=== PATIENT | female | born 1970 | race Two or more races ===

== ENCOUNTER 2019-12-29 05:57 | Emergency (ER) | payer MEDICAID ==
[~2019-12-29] VITALS: Ht 157.5 cm; Wt 82.0 kg
[2019-12-29] MEDS ORDERED: KETOROLAC 30MG/ML VIAL IM ONE (08:30)
[2019-12-29] MEDS ORDERED: CYCLOBENZAPRINE 10MG TABLET PO ONE (08:30)
[2019-12-29 10:00] VITALS: BP 134/77
[2019-12-29 10:11] LABS: CLARITY URINE CLEAR (CLEAR); COLOR URINE YELLOW (YELLOW); KETONES URINE NEGATIVE (NEGATIVE); LEUKOCYTE ESTERASE URINE NEGATIVE (NEGATIVE); NITRITE URINE NEGATIVE (NEGATIVE); OCCULT BLOOD URINE NEGATIVE (NEGATIVE); PH URINE 5.5 (4.5-8.0); PROTEIN URINE NEGATIVE (NEGATIVE); SPECIFIC GRAVITY URINE 1.032 (1.005-1.030); UROBILINOGEN URINE 0.2 E.U./dL (0.2-1.0)
== END 2019-12-29 10:54 | disposition home or self-care (01) ==
LOC: ER 05:57
DX: M54.6 Pain in thoracic spine (principal); Z88.8 Allergy status to other drugs, medicaments and biological substances; Z90.49 Acquired absence of other specified parts of digestive tract; Z98.890 Other specified postprocedural states; C43.9 Malignant melanoma of skin, unspecified
CPT/HCPCS: 81003; 81025; 96372; 99283; J1885

== ENCOUNTER 2022-01-31 08:13 | Emergency (ER) | payer MEDICAID ==
[~2022-01-31] VITALS: Ht 165.1 cm; Wt 77.0 kg
[~2022-01-31 08:13] MED LIST: FERR325T6 MT; IBUP-2028 MT
[2022-01-31] MEDS ORDERED: VISCOUS LIDOCAINE 2% 15 ML UDC MM STA (08:38)
[2022-01-31] MEDS ORDERED: ACETAMINOPHEN 325MG TABLET PO ONE (08:45)
[2022-01-31] MEDS ORDERED: MORPHINE SULFATE 10 MG/ML CPJ IM ONE (08:45)
[2022-01-31] MEDS ORDERED: ONDANSETRON 4MG ODT PO ONE (08:45)
[2022-01-31] MEDS ORDERED: MAGNESIUM/ALUMINUM HYDROXIDE/SIMETHICONE 30ML UDC PO ONE (08:45)
[2022-01-31] MEDS ORDERED: FAMOTIDINE 20MG TABLET PO ONE (08:45)
[2022-01-31 09:05] LABS: BASOPHILS % 0.2 % (0.0-2.0); EOSINOPHILS % 5.6 % (0.0-5.0); HEMATOCRIT. 42.6 % (36.0-48.0); HEMOGLOBIN. 13.6 g/dL (12.0-16.0); LYMPHOCYTES % 22.4 % (20.0-50.0); MEAN CORPUSCULAR HEMOGLOBIN 25.4 pg (28.0-32.0); MEAN CORPUSCULAR VOLUME 79.4 fL (81.0-99.0); MONOCYTES % 5.9 % (2.0-8.0); NEUTROPHILS % 65.9 % (40.0-76.0); PLATELET 237 x1000/uL (130-400); RED BLOOD CELL COUNT 5.37 mill/uL (4.2-5.4); RED CELL DISTRIBUTION WIDTH 15.3 % (11.6-14.6)
[2022-01-31 09:13] LABS: CHLORIDE 107 mEq/L (98-107)
[2022-01-31 09:15] LABS: PROTHROMBIN TIME 10.4 sec (9.6-11.0)
[2022-01-31 10:54] VITALS: BP 135/74
[2022-01-31] MEDS ORDERED: MORPHINE SULFATE 4 MG/ML CPJ (NOT FOR IM USE) IV STA (10:54)
== END 2022-01-31 13:13 | disposition home or self-care (01) ==
LOC: ER 08:51
DX: K29.00 Acute gastritis without bleeding (principal); K21.9 Gastro-esophageal reflux disease without esophagitis; Z90.49 Acquired absence of other specified parts of digestive tract; Z88.8 Allergy status to other drugs, medicaments and biological substances
CPT/HCPCS: 36415; 71045; 74176; 80053; 83690; 83880; 84484; 85025; 85610; 93005; 96372; 99285; J2270; Q0162

== ENCOUNTER 2024-11-26 20:36 | Emergency (ER) | payer MEDICAID ==
[~2024-11-26] VITALS: Ht 154.9 cm; Wt 77.0 kg
[2024-11-26 20:42] VITALS: O2SAT 99
[2024-11-26] MEDS ORDERED: PHEN51CR24 TP (23:20)
[2024-11-27 00:13] VITALS: BP 138/74; PULSE 74; RESP 20; TEMP 36.6; O2SAT 99
== END 2024-11-27 00:30 | disposition home or self-care (01) ==
LOC: ER 20:36
DX: T74.21XA Adult sexual abuse, confirmed, initial encounter (principal); K64.4 Residual hemorrhoidal skin tags; Z90.49 Acquired absence of other specified parts of digestive tract; X58.XXXA Exposure to other specified factors, initial encounter; Y93.89 Activity, other specified; Y92.89 Other specified places as the place of occurrence of the external cause; Y99.8 Other external cause status
CPT/HCPCS: 99284